=== PATIENT | female | born 1960 | race Caucasian/White ===

== ENCOUNTER → 2016-09-02 | Day surgery (SDC) | payer BC ==
[~2016-09-02] VITALS: Ht 172.7 cm; Wt 104.3 kg
[~2016-09-02] MED LIST: ABILIFY5 MG PO; AMBIEN 10MG TAB10 MG PO; B12 INJ.,1000 MCG/M IM; BACTRIM DS 8001 TA1 PO; BENTYL20 MG PO; BUMEX 1MG TAB1 MG PO; CIPRO 500MG TA500 MG PO; COREG25 MG PO; CYCLOBENZAPRINE10 MG PO; CYMBALTA20 MG PO; CYMBALTA60 MG PO; DILAUDID2 MG EP; FLEXERIL10 MG PO; FLOMAX 0.4MG C0.4 MG PO; HYDROMORPH IV; LAMICTAL 100 M100 MG PO; LEVSIN 0.1250.125 MG SL; LORAZEPAM0.5 MG/TAB PO; LORTAB 5/500 501 TAB PO; LORTAB 500 MG-11 TAB PO; LOVENOX40 MG/0.4 SC; MAXZIDE 25 MG-31 TA1 PO; NAPROXEN SODIU500 MG PO; PERCOCET 10 MG1 EACH PO; PERCOCET 325 MG1 TA3 PO; PERCOCET 5/3251 EACH PO; PERCOCET1 TA1 PO; PHENERGAN 25MG.25 M1 PO; PREDNISONE 20MG20 MG PO; PREMARIN 0.60.625 MG PO; PROTONIX 40MG T40 MG PO; SENNA DOCUSATE1 TAB PO; ZITHROMAX Z PA250 MG PO
[2016-09-02 13:02] VITALS: BP 127/95
[2016-09-02 13:29] VITALS: BP 127/95
[2016-09-02 13:30] VITALS: BP 158/103
--- NOTE | 2016-09-02 13:35 | Procedure Note ---
Procedure detail Date of procedure: 09/02/16 Anesthesiologist: Jame gomez CRNA Complications: None Pre-procedure diagnosis: Degenerative disc disease lumbar spine multiple levels lumbar radiculopathy symptoms. Post laminectomy syndrome. Post-procedure diagnosis: Same. Indications for procedure: Patient's a very pleasant 56-year-old white female were treating her pain clinic for chronic low back pain secondary to degenerative disc disease lumbar spine multiple levels with MR radiculopathy symptoms. Post laminectomy syndrome lumbar spine. We are currently managing her with intrathecal pain pump. She is doing quite well with Dilaudid 1 mg/mL at a rate of 0.15 mg per day. She's having some increased pain in her low back as well as bilateral hips. We will increase her rate to 0.20 mg per day. Also, we will increase her PTM dose to 0.03 mg she'll continue with 3 PTM doses available. Patient's awake alert oriented 3. In no acute distress. Flexion extension lumbar spine somewhat guarded secondary to pain. Deep tendon reflexes upper lower extreme is normal. Motor strength upper lower extreme is normal. There is no gross sensory deficit. Gait is normal. Procedure detail: Details of the procedure expected to the patient. Patient was taken to the procedure room where noninvasive monitors were placed including noninvasive blood pressure cuff as well as pulse oximeter. The area over the intrathecal pain pump was cleansed using chlorhexidine as a cleansing solution. Using a 22- gauge needle from the refill kit the pump was accessed with ease. 7.9 mL of solution was withdrawn and discarded appropriately. 20 mL of Dilaudid 1 mg/mL was injected. The pump was interrogated and the rate was increased to 0.2 mg per day. The PTM dose was increased to 0.03 mg. Plan and disposition: Patient was reevaluated 15 minutes post procedure. She did quite well. We'll discharge her home. She'll is welcome to call us with any questions. at 0928
[2016-09-02 13:54] VITALS: BP 128/73
--- NOTE | 2016-09-02 14:41 | RADIOLOGY REPORT PS360 ---
HIP RT 2-3V W/PELVIS IF PERFOR HISTORY: RT HIP PAIN ORDERING PHYSICIAN: LAUREL GOMEZ CRNA PATIENT AGE: 56 years COMPARISON: None FINDINGS: Right hip is unremarkable.. No fracture or dislocation or significant degenerative changes evident. There are mild dysplastic changes of the left femoral head seen on the AP view of the pelvis and there are postsurgical changes of lumbar spine with very metallic pack overlying the right ilium superiorly. IMPRESSION: 1. Negative right hip. 2. Mild dysplastic changes of the left femoral head
== END ==
LOC: PM 12:52
DX: M51.16 Intervertebral disc disorders with radiculopathy, lumbar region (principal); M96.1 Postlaminectomy syndrome, not elsewhere classified

== ENCOUNTER 2016-09-08 18:14 | Emergency (ER) | payer BC ==
[~2016-09-08] VITALS: Ht 172.7 cm; Wt 63.5 kg
[~2016-09-08 18:14] MED LIST changes: -FLEXERIL10 MG PO; -PREDNISONE 20MG20 MG PO; -ZITHROMAX Z PA250 MG PO
--- NOTE | 2016-09-08 19:26 | Urgent Treatment Center Report ---
History of Present Issue Date/Time Seen by Provider 09/08/16 1840 Visit Reason Pt arrived:Walked Presenting Problem:PT C/O DURANT, SORE THROAT, COUGH, AND CHEST CONGESTION Location if Accident: Onset of symptoms date/time:/ or onset unknown for:MEDICAL HX UNKNOWN Have you (or family members/close friends) recently traveled outside the [place]? N If Yes, where/when: Have you had exposure to infectious disease within the past month? TB? Other? Specify: Patient states that he grandchildren have had the strep throat and now she is having headache, sorethroat and cough and congestion states that she thought she should come get checked because of her exposure to them ALLERGIES Coded Allergies: cephalexin (From Little1) (Severe, "SERUM SICKNESS"; JOINTS LOCKED 01/28/16) Penicillins (Intermediate, I-HIVES 01/28/16) morphine (Intermediate, I-HIVES 01/28/16) Home Medications Active Scripts Lamotrigine (Lamictal 100Mg) 200 MG PO BID #30 Prov: 01/30/12 Reported Medications Vitamin B12 (Cyanocobalamin Injection) 1,000 MCG IM Q 2 WEEKS Lorazepam (Lorazepam 0.5MG) 0.5 MG PO Q6HP #60 TAB DULOXETINE HCL (Cymbalta 60MG) 60 MG PO DAILY Promethazine Hydrochloride (Phenergan 25MG Tab) 12.5 MG PO Q4-6H PRN Carvedilol (Coreg 25MG) 12.5 MG PO BID TRIAMTERENE/HYDROCHLOROTHIAZID (Maxzide 37.5 MG-25 MG Tablet) 1 TAB PO DAILY Bumetanide (Bumex 1MG Tab) 0.5 MG PO DAILY Hydromorphone HCl in 0.9% NaCl (Hydromorphone 100 MG/50 Ml-Ns) 100 MG IV CONTINUOUS Dicyclomine Hcl (Bentyl 20MG) 20 MG PO Q6HP PRN STOMACH Hyoscyamine Sulfate (Levsin 0.125MG Tab) 0.125 MG SL QIDP PRN STOMACH Aripiprazole (Abilify) 5 MG PO QHS History Medical History General CAD? No Angina: No [place]: No Hypertension? No Hyperlipidemia? No CHF? No DVT? No PE? No COPD? No Asthma? No Anemia? Yes GERD? Yes Gastric ulcers? No GI Bleed? No Hernia? No Thyroid Problems? No Hypothyroidism? No CVA? No Seizures? No Diabetes? Yes Insulin Dependent: No Insulin Pump: No Home FSBS? No Renal Insuffiency? No UTI? No Stones? No BPH? No GB Disease: Yes Nephritic Syndrome? No Asplenia? No Hepatitis? No Sickle Cell Disease? No Arthritis? Yes Migraines? Yes Cataracts? No Glaucoma? No MRSA? No HIV? No TB? No Anxiety? Yes Depression? Yes Cancer? Yes Site: SKIN CA More? Yes Additional hx: HEART MURMUR Immunization HX DT/Tetanus 03/12/12 Flu [id number] Pneumonia Received In Past Surgical Hx Previous Surgery?Y EAR IN 1966 & 1984 & 1991 Cholecystectomy Hysterect KNEE RIGHT ARTHROSCOPIES L5 DISCECTOMY GASTRIC BYPASS ADHESIONS DERMOID CYST COLONOSCOPY BASAL CELL CA NOSE HAMMER TOES R KNEE REPLACEMENT INTRATHECAL PAIN PUMP Family History Family HX Diabetes Yes CAD Yes Hypertension Yes Hyperlipidemia Yes Cancer Yes TB No Social History Smoking Hx Smoker: Never Smoker Tobacco: No Packs/day N/A Alcohol Alcohol: No Review of Systems All Other Systems Reviewed and Negative ENT nose congestion, throat pain, throat swelling. Respiratory cough Physical Exam Vital Signs Vital Signs Date Time Temp Pulse Resp B/P Pulse O2 O2 Flow FiO2 Ox Delivery Rate 09/08 1852 101.3 84 18 119/63 99 General Appearance Patient appears ill, pale in color cheeks red Ear, Nose, Throat sinus pain/drainage, nasal congestion, tonsillar exudate, tonsillar swelling, throat red, swollen, greenish yellow discharge from nose Respiratory Status Yes: trachea midline, chest symmetrical, non tender chest. No: respiratory distress. Lung Sounds bilateral: normal breath sounds, lungs clear. Cardiovascular normal exam, regular rate/rhythm, no peripheral edema, no gallop Neurologic alert, normal exam, no motor/sensory deficits Medical Decision Making LABS/Meds/Orders Pt receiving controlled substance in ED? No Results/Orders Current Medication Orders Sig/Sophia Start time Last Medication Dose Route Stop Time Status Admin Acetaminophen 0 .STK-MED ONE 09/08 1908 DC PO Ibuprofen 0 .STK-MED ONE 09/08 1908 DC PO Acetaminophen 1,000 MG ONCE ONE 09/08 1899 DC 09/08 PO 09/08 Ibuprofen 800 MG ONCE ONE 09/08 1899 DC 09/08 PO 09/08 Orders Procedure Date/time Status [facility] STREP SCREEN 09/08 1916 Active [facility] FLU A,B 09/08 1916 Active Departure Departure Time of Disposition 1940 Disposition DC Home or Self Care(routine) Clinical Impression Primary Impression: Upper respiratory infection Condition STABLE Referrals [facility] (Family) Patient Instructions DI for Cough -- Adult, DI for Sinusitis Additional Instructions Drink plenty of fluids Over the counter Motrin/Tylenol as needed for fever Follow up with family doctor Discharge Counseling Counseled pt/family regarding diagnosis, medications/RX, home care Prescriptions Current Visit Scripts Azithromycin (Zithromycin (Z-PREETI) 250MG Tab) 250 MG PO DAILY #6 TAB TAKE TWO (2) TABLETS ON DAY 1, THEN ONE (1) TABLET DAY #2 THRU #5 Prednisone (Prednisone 20MG) 20 MG PO BID #10 TAB at 1945
[2016-09-08] MEDS ORDERED: PREDNISONE 20MG20 MG PO (19:45)
[2016-09-08] MEDS ORDERED: ZITHROMAX Z PA250 MG PO (19:45)
[2016-09-08 19:46] LABS: UTC STREP SCREEN NOT DETECTED (NOTDETECTED)
[2016-09-08 19:54] VITALS: BP 119/63
== END 2016-09-08 19:55 | disposition home or self-care (01) ==
LOC: UTC 18:14
PROVIDERS: Nurse Practitioner
DX: J06.9 Acute upper respiratory infection, unspecified (principal); F41.8 Other specified anxiety disorders; E11.9 Type 2 diabetes mellitus without complications; K21.9 Gastro-esophageal reflux disease without esophagitis

== ENCOUNTER 2016-10-30 14:20 | Emergency (ER) | payer BC ==
[~2016-10-30] VITALS: Ht 172.7 cm; Wt 104.3 kg
[~2016-10-30 14:20] MED LIST changes: +PREDNISONE 20MG20 MG PO; +ZITHROMAX Z PA250 MG PO
--- NOTE | 2016-10-30 14:56 | Emergency Room Report ---
History of Present Illness Time Seen by MD Cheek Presenting Problem in Triage Pt arrived:Walked Presenting Problem:SEVER BACK PAIN, CANNOT URINATE. STATES SHE HAS NOT BEEN ABLE TO URINATE SINCE 0500. PT HAS A PAIN PUMP DUE TO CHRONIC PAIN BUT STATES THIS PAIN IS NOT HER TYPICAL PAIN. Onset of symptoms date/time:10/27/1605/05/800 or onset unknown for: Treatment Prior to Arrival: [employer] Provided by: Sepsis Risk Assessment: Temp: 98.7 B/P: 120/56 MAP: 77 Pulse: 66 Resp: 16 Recent fever? N Clinical Suspician of Infection? N Mental Status: 1 - Regular (Normal Baseline) Sepsis Risk:Low Sepsis Risk Have you (or family members/close friends) recently traveled outside the [place]? N If Yes, where/when: Have you had exposure to infectious disease within the past month? TB? Other? Specify: TC from pain clinic: patient with chronic urinary retention; chronic pain. Patient states she "dropped the baby" last week and has been having localized pain around her pain pump since that time. She is moving her bowels well, reporting some urinary retention today. No loss of bowel or bladder function acutely; no acute numbness or weakness; has chronic lumbar pain with surgery and chronic pain syndrome. ALLERGIES Coded Allergies: cephalexin (From Keflex) (Severe, "SERUM SICKNESS"; JOINTS LOCKED 10/30/16) Penicillins (Intermediate, I-HIVES 10/30/16) morphine (Intermediate, I-HIVES 10/30/16) Home Medications Active Scripts Lamotrigine (Lamictal 100Mg) 200 MG PO BID #30 Prov: 01/30/12 Reported Medications Vitamin B12 (Cyanocobalamin Injection) 1,000 MCG IM Q 2 WEEKS Lorazepam (Lorazepam 0.5MG) 0.5 MG PO Q6HP #60 TAB DULOXETINE HCL (Cymbalta 60MG) 60 MG PO DAILY Promethazine Hydrochloride (Phenergan 25MG Tab) 12.5 MG PO Q4-6H PRN Carvedilol (Coreg 25MG) 12.5 MG PO BID TRIAMTERENE/HYDROCHLOROTHIAZID (Maxzide 37.5 MG-25 MG Tablet) 1 TAB PO DAILY Bumetanide (Bumex 1MG Tab) 0.5 MG PO DAILY Hydromorphone HCl in 0.9% NaCl (Hydromorphone 100 MG/50 Ml-Ns) 100 MG IV CONTINUOUS Dicyclomine Hcl (Bentyl 20MG) 20 MG PO Q6HP PRN STOMACH Hyoscyamine Sulfate (Levsin 0.125MG Tab) 0.125 MG SL QIDP PRN STOMACH Aripiprazole (Abilify) 5 MG PO QHS History Medical History General CAD? No Angina: No [place]: No Hypertension? No Hyperlipidemia? No CHF? No DVT? No PE? No COPD? No Asthma? No Anemia? Yes GERD? Yes Gastric ulcers? No GI Bleed? No Hernia? No Thyroid Problems? No Hypothyroidism? No CVA? No Seizures? No Diabetes? Yes Insulin Dependent: No Insulin Pump: No Home FSBS? No Renal Insuffiency? No End Stage Renal Disease? No UTI? No Stones? No BPH? No GB Disease: Yes Nephritic Syndrome? No Asplenia? No Hepatitis? No Sickle Cell Disease? No Arthritis? Yes Migraines? Yes Cataracts? No Glaucoma? No MRSA? No HIV? No TB? No Anxiety? Yes Depression? Yes Cancer? Yes Site: SKIN CA More? Yes Additional hx: HEART MURMUR Immunization Hx DT/Tetanus 03/12/12 Flu [id number] Pneumonia Received In Past Surgical Hx Previous Surgery?Y EAR IN 1966 & 1984 & 1991 Cholecystectomy Hysterect KNEE RIGHT ARTHROSCOPIES L5 DISCECTOMY GASTRIC BYPASS ADHESIONS DERMOID CYST COLONOSCOPY BASAL CELL CA NOSE HAMMER TOES R KNEE REPLACEMENT INTRATHECAL PAIN PUMP ENTRY LEVEL ACCOUNTING CLERK Hx LMP N/A Family History Family Hx Diabetes Yes CAD Yes Hypertension Yes Hyperlipidemia Yes Cancer Yes TB No Social History Smoking Hx Smoker: Never Smoker Tobacco: No Packs/day N/A Alcohol Alcohol: No Review of Systems All Other Systems Reviewed and Negative Musculoskeletal see HPI, back pain Psychiatric/Neurological pre-existing deficit (chronic urinary retention), other (chronic back pain) Physical Exam Vital Signs Vital Signs Date Time Temp Pulse Resp B/P Pulse O2 O2 Flow FiO2 Ox Delivery Rate 10/30 1701 98.7 67 16 126/62 100 10/30 1539 16 10/30 1519 67 16 117/62 100 10/30 1434 98.7 66 16 120/56 100 General Appearance normal appearance, WD/WN, no apparent distress Eye Exam - bilateral eye normal exam, bilateral eye PERRL, bilateral eye EOMI Neck normal inspection, non-tender, supple, full range of motion Respiratory Status Yes: trachea midline, chest symmetrical, non tender chest. No: respiratory distress, tender on palpation, use of accessory muscles, pain on inspiration, pain on expiration, productive cough, non productive cough. Lung Sounds bilateral: normal breath sounds, lungs clear. Cardiovascular normal exam, regular rate/rhythm, no gallop, no JVD, no murmur, no rub, normal peripheral pulses (mild ankle edema, chronic) Peripheral Pulses Pulses normal Yes (DP B) Gastrointestinal normal bowel sounds, normal exam, soft, no organomegaly, no pulsatile mass, no guarding, no rebound Back no vertebral tenderness, strt leg raising(L)-NML, strt leg raising(R)-NML, Palpable pain pump to right lower lumbar area with tenderness to that region without bogginess or edema; midline scar c/w remote lumbar surgical repair; no vesicles or rash; atraumatic. Extremities non-tender, normal range of motion, no calf tenderness, pedal edema Neurologic alert, normal exam, no motor/sensory deficits, oriented x 3 Glascow Coma Scale Glascow Coma Scale Response Value EYE response: 4 Spontaneously 4 MOTOR response: 6 OBEYS 6 VERBAL response: 5 Oriented & Converses 5 Total 15 Reflexes Reflexes normal Yes DTR 2+ ankle (R), 2+ ankle (L) Skin intact, normal color Medical Decision Making LABS/Meds/Orders Pt receiving controlled substance in ED? No Results/Orders Laboratory Tests 10/30/16 1630: Urine Color YELLOW, Urine Appearance SL CLOUDY, Urine pH 6.0, Ur Specific Thorn[place]ike 1.015, Urine Protein NEGATIVE, Urine Ketones NEGATIVE, Urine Blood NEGATIVE, Urine Nitrate NEGATIVE, Urine Bilirubin NEGATIVE, Urine Urobilinogen 0.2, Ur Leukocyte Esterase TRACE H, Urine WBC 3-5, Ur Squamous Epith Cells OCC, Urine Bacteria 2+, Hyaline Casts OCC, Urine Glucose NEGATIVE 10/30/16 1530: Sodium 140, Potassium 3.3 L, Chloride 101, Carbon Dioxide 33 H, BUN 17, Creatinine 0.9, Estimated Creat Clear 115, Estimated GFR (MDRD) 65, Glucose 82, Calcium 8.9, Total Bilirubin 0.3, AST 32, ALT 36, Alkaline Phosphatase 103, Total Protein 7.0, Albumin 3.2 L, Globulin 3.8 H, Albumin/Globulin Ratio 0.8 L, WBC 5.9, RBC 3.64 L, Hgb 11.2 L, Hct 33.6 L, MCV 92.5, RDW 12.4, Plt Count 338, MPV 5.7 L, Gran % 60.0, Gran # 3.6, Lymphocytes % 29.8, Monocytes % 6.2, Eosinophils % 3.7, Basophils % 0.3, Lymphocytes # 1.8, Monocytes # 0.4, Eosinophils # 0.2, Basophils # 0.0, PUBS MCHC 33.4, MCH 30.9 Current Medication Orders Sig/Sophia Start time Last Medication Dose Route Stop Time Status Admin Ketorolac 30 MG ONCE ONE 10/30 1545 DC 10/30 Tromethamine IM 10/30 1546 1539 Ondansetron HCl 4 MG ONCE ONE 10/30 1545 DC 10/30 SL 10/30 1546 1539 Ondansetron HCl 0 .STK-MED ONE 10/30 1522 DC .ROUTE Ondansetron HCl 0 .STK-MED ONE 10/30 1501 DC .ROUTE Ketorolac 15 MG ONCE ONE 10/30 1500 CAN Tromethamine IV 10/30 1501 Ketorolac 0 .STK-MED ONE 10/30 1500 DC Tromethamine .ROUTE Ondansetron HCl 4 MG ONCE ONE 10/30 1500 CAN IV 10/30 1501 Sodium Chloride 10 ML PRN PRN 10/30 1500 DC IV 10/31 1450 Orders Procedure Date/time Status DIET-NOTHING BY MOUTH 10/30 D Active CULTURE, URINE 10/[address] ABD/PELVIS REQ 10/30 1555 Complete URINARY CATHETER INSERT 10/30 1554 Active URINALYSIS/COMPLETE 10/30 1451 Complete CBC WITH AUTO DIFF 10/30 1451 Complete CHEM 12 PROFILE 10/30 1451 Complete XRAY/CT/US XRAY/CT/US CT interpretation by reviewed by me (report reviewed) Time results known: 1724 CT Results normal/NAD (increased stool neg acute), chronic back surgical changes and DJD Consult MD Physician Consult Time Called 1723 Reason Pt. Condition Comments Allison Hines w/ pain clinic recommends Flexeril, d/c, she will call the patient tomorrow at home and set up urology f/u and pain clinic f/u. Departure Departure Time of Disposition 172 Disposition DC Home or Self Care(routine) Clinical Impression Primary Impression: Lumbar pain determined by palpation Condition STABLE Patient Instructions Managing Chronic Low Back Pain Additional Instructions Allison from pain clinic will set up urology follow up and pain clinic f/u; recommends muscle relaxer and d/c home. The muscle relaxer can make you sleepy, and you drove here, so fill the prescription and don't drive after taking this medication. Discharge Counseling Counseled pt/family regarding diagnosis, test results, medications/RX, home care, follow up needs Prescriptions Current Visit Scripts Cyclobenzaprine Hcl (Flexeril) 5 MG PO BID PRN spasm #6 TAB ED Critical Care Critical Care No at 1720
[2016-10-30 15:57] LABS: HEMOGLOBIN 11.2 g/dL (12.2-16.2); LYMPH # 1.8 K/mm3 (0.7-4.5); LYMPH % 29.8 % (10-50.0)
[2016-10-30 16:37] LABS: URINE BILIRUBIN - DIPSTICK NEGATIVE (NEG); URINE BLOOD NEGATIVE (NEG)
[2016-10-30 16:45] LABS: URINE SQUAMOUS CELLS OCC #/hpf (0-5)
--- NOTE | 2016-10-30 16:58 | RADIOLOGY REPORT PS360 ---
CT ABD PELVIS W/O CONTRAST CLINICAL INDICATION: URINARY RETENTION ORDERING PHYSICIAN: Alessia Xie MD PATIENT AGE: 56 years COMPARISON: None TECHNIQUE: Axial images obtained with sagittal and coronal reformats. PROCEDURE: Oral Contrast: None IV Contrast: None . FINDINGS: There are minimal dependent changes within the lingula. There is been prior gastric surgery with prior gastric bypass. Postcholecystectomy change. No focal liver lesion. Spleen and adrenal glands are unremarkable. No renal calculi or hydronephrosis. There is mild amount retained colonic feces. No evidence of intestinal obstruction or free air. No evidence of diverticulitis or appendicitis. A Heart catheter is present. The urinary bladder is decompressed. Artifact is present from intrathecal stimulator device with implantable portion of the device device in the right paraspinal area. There has been prior lumbar surgery with interpedicular screws at L3, L4, and L5. There is severe degenerative disc disease at L2-L3. IMPRESSION: 1. No acute intra-abdominal or pelvic pathology. 2. Postsurgical changes as described above. 3. Moderate amount retained colonic feces. 4. Heart catheter present. No evidence of renal or ureteral calculi
[2016-10-30] MEDS ORDERED: FLEXERIL10 MG PO (17:28)
[2016-10-30 17:57] VITALS: BP 126/62
== END 2016-10-30 17:58 | disposition home or self-care (01) ==
LOC: ER 14:20
PROVIDERS: Emergency Medicine
DX: M54.5 Low back pain (principal); K21.9 Gastro-esophageal reflux disease without esophagitis; E11.9 Type 2 diabetes mellitus without complications; F41.8 Other specified anxiety disorders

== ENCOUNTER → 2017-01-30 | Outpatient (CLI) | payer BC ==
[~2017-01-30] MED LIST changes: +DILAUDID4 MG PO; +FLEXERIL10 MG PO; +LASIX 20MG. TAB20 MG PO; +MUPIROCIN2% TP; +TRAMADOL 50MG T50 M1 PO
[2017-01-30 10:39] LABS: LYMPH # 1.3 K/mm3 (0.7-4.5); LYMPH % 25.5 % (10-50.0)
[2017-01-30 11:28] LABS: BUN 11 mg/dL (7-18); GFR (ESTIMATED) 103 ML/MIN (59-)
[2017-01-30 11:59] LABS: HEMOGLOBIN 10.7 g/dL (12.2-16.2)
[2017-01-31 19:28] LABS: Vitamin D, 25-Hydroxy 24.7 ng/mL (30.0-100.0)
== END ==
LOC: LAB 10:11
PROVIDERS: Internal Medicine
DX: E11.9 Type 2 diabetes mellitus without complications (principal); I10 Essential (primary) hypertension; R79.89 Other specified abnormal findings of blood chemistry; M19.90 Unspecified osteoarthritis, unspecified site

== ENCOUNTER 2017-03-31 12:51 | Day surgery (SDC) | payer BC ==
[~2017-03-31] VITALS: Ht 172.7 cm; Wt 104.3 kg
[2017-03-31 13:32] VITALS: BP 124/70
[2017-03-31 14:04] VITALS: BP 124/70
[2017-03-31 14:05] VITALS: BP 142/94
--- NOTE | 2017-03-31 14:17 | Procedure Note ---
Procedure detail Date of procedure: 03/31/17 Anesthesiologist: Jame Lujan Complications: None Pre-procedure diagnosis: Degenerative disease lumbar spine multiple levels. Lumbar radiculopathy symptoms. Lumbar postlaminectomy syndrome. Post-procedure diagnosis: Same. Indications for procedure: Very pleasant 57-year-old white female returns our procedure clinic today for intrathecal pain pump refill. Patient seems to be doing quite well with her current settings. However, patient is describing some excess pain in the lumbar spine area that she describes as constant, dull, aching. We discussed in detail with the patient regarding adding bupivacaine at her next refill. She agrees. Patient's current pump rate is 0.75 mg per day. She also has PTM at 0.07 mg 3 times a day. We are changing her concentration today from hydromorphone 1 mg/ml to 5 mg/mL. Procedure detail: Details of the procedure were expected to the patient. The patient was taken to procedure room and placed in the sitting position. The area over the pump was cleansed using chlorhexidine as a cleansing solution. The pump was accessed with ease using a 22-gauge needle from the refill kit. 5 mL of solution was withdrawn and discarded appropriately. The pump was then filled with 20 mL of hydromorphone 5 mg/mL. The pump was interrogated. The rate was continued at 0.75 mg per day. Plan and disposition: Patient was reevaluated 15 minutes post procedure. She is very well. She will return to see us at her next refill date. Also, we will attempt to add bupivacaine to her mixture her medications at her next refill date. at [id number]
[2017-03-31 14:44] VITALS: BP 135/70
== END 2017-03-31 14:46 ==
LOC: PM 12:51
DX: M51.16 Intervertebral disc disorders with radiculopathy, lumbar region (principal); M96.1 Postlaminectomy syndrome, not elsewhere classified

== ENCOUNTER 2017-04-21 12:52 | Day surgery (SDC) | payer BC ==
[~2017-04-21] VITALS: Ht 172.7 cm; Wt 99.8 kg
[2017-04-21 13:13] VITALS: BP 121/67
[2017-04-21 13:29] VITALS: BP 142/96
[2017-04-21 13:30] VITALS: BP 149/97
--- NOTE | 2017-04-21 13:43 | Procedure Note ---
Procedure detail Date of procedure: 04/21/17 Anesthesiologist: Jame Lujan Complications: None Pre-procedure diagnosis: Degenerative disc disease lumbar spine multiple levels. Lumbar postlaminar syndrome. Lumbar radiculopathy symptoms. Post-procedure diagnosis: Same. Indications for procedure: Very pleasant 77-year-old white female that we've been treating for quite some time for chronic low back pain secondary to degenerative disc disease lumbar spine with lumbar postlaminectomy syndrome. We currently manage her with intrathecal pain pump. Currently she has Dilaudid 10 mg/mL at 0.75 mg per day. She presents to our clinic today for intrathecal pain pump refill. We will add bupivacaine 5 mg/mL along with Dilaudid 10 mg/mL. We will not make any changes to the current daily rate. However, we will increase her PTM to 0.075 mg 3 times daily. Procedure detail: Details of the procedure is going to the patient. The patient taken to procedure room and placed in sitting position. The area over the pump was cleansed using chlorhexidine as a cleansing solution. The pump was accessed with ease using a 22-gauge needle from the refill kit. 18 mL of solution was withdrawn and discarded appropriately. The pump was then filled with 20 mL of Dilaudid 10 mg/ mL and bupivacaine 5 mg/mL. The pump was interrogated and the rate was continued at 0.75 mg per day. The PTM was changed to 0.075 mg 3 times daily. Patient tolerated the procedure without difficulty. There are no complications. Objective: Patient's awake alert oriented 3. In acute distress. Flexion extension lumbar spine somewhat guarded secondary to pain. Deep tendon reflexes upper lower extremities normal. Motor strength upper and lower extremities normal. There is no gross sensory deficit. Gait is normal. Positive straight leg raise test at 30 degrees bilaterally. Plan and disposition: Patient was evaluated 10 minutes post procedure. She do very well. We'll see her at her next refill date. at 1075
[2017-04-21 13:47] VITALS: BP 120/74
== END 2017-04-21 13:47 | disposition home or self-care (01) ==
LOC: PM 12:52
DX: M51.16 Intervertebral disc disorders with radiculopathy, lumbar region (principal); M96.1 Postlaminectomy syndrome, not elsewhere classified

== ENCOUNTER 2017-05-11 13:26 | Day surgery (SDC) | payer BC ==
--- NOTE | 2017-05-11 15:35 | Operative Note ---
Upper GI Endoscopy Procedure date: 05/11/17 Date of : 60 Procedure:Upper GI Endoscopy Esophagogastrojejunoscopy with cold biopsies and TTS balloon dilation Indications: Mrs. Dunne is a 57-year-old female who underwent prior Morris-en-Y gastric bypass (Dr. Ilia Marrufo). She has had numerous bowel surgeries. She has chronic dyspepsia. She did have a CAT scan that showed some dilated loops of small bowel and possible ileus. She is on a Dilaudid pain pump and typically has diarrhea up to 3 or 4 times a day but has had intermittent constipation. She has chronic IBS. She also has had some dysphagia. The patient did have panendoscopy by Dr. goode and in 2015 that was normal but poorly prepped. She had an EGD with Dr. Vinicius Allen M.D. in 2012. Her dyspepsia is refractory to proton pump inhibitor therapy and H2 antagonists. Performing Provider: Ramona Galaviz MD Referring Provider: Jose Hightower M.D. Sedation: MAC sedation Procedure: Prior to the procedure, a history and physical exam was performed, and patients medications and allergies were reviewed. The risks and benefits of the procedure and the sedation options and risks were discussed with the patient. All questions were answered and informed consent was obtained. The patient was brought to the procedure room. Patient identification and proposed procedure were verified by the physician and the nurse. The patient was placed in a left lateral decubitus position and the scope was passed under direct vision. Throughout the procedure, the patient's blood pressure, pulse, and oxygen saturations were monitored continuously. The endoscope was introduced through the mouth, and advanced to the second part of duodenum. The upper GI endoscopy was accomplished without difficulty. The patient tolerated the procedure well. Findings: The scope was passed directly into the upper esophagus and advanced to the jejunal afferent and efferent limbs of jejunum from the Morris-en-Y gastric bypass which were normal. The stoma was widely patent with no anastomotic ulceration. The scope was withdrawn into a very small gastric pouch that was normal. Cold biopsies were obtained. There was no hiatal hernia. There was no significant gastritis. The scope was withdrawn into the esophagus. There was no evidence of reflux esophagitis, Garcia's or stricturing or esophageal ring. The entire esophagus was dilated to 60 Palestinian/20 mm with a TTS hydrostatic balloon with some resistance at the cricopharyngeus/upper esophageal sphincter. Immediate complications: None EBL (ml): 0 Impression: 1. Normal Morris-en-Y gastric bypass anatomy 2. Esophageal dyskinesia/esophageal dysmotility with some mild cricopharyngeal spasm status post dilatation to 20 mm Recommendations: I do feel that the patient has chronic functional dyspepsia and functional bowel disease. She may benefit from the addition of Relistor or Movantik. I would also consider therapy for visceral sensitivity/spasm. at 1869
[2017-05-11 16:08] VITALS: BP 113/73
== END 2017-05-11 16:04 | disposition home or self-care (01) ==
LOC: SDC 13:26
PROVIDERS: Internal Medicine Gastroenterology
PROC: 0DB68ZX Excision of Stomach, Via Natural or Artificial Opening Endoscopic, Diagnostic (ICD-10-PCS; 2017-05-11)
PROC: 0D758ZZ Dilation of Esophagus, Via Natural or Artificial Opening Endoscopic (ICD-10-PCS; principal; 2017-05-11 14:30)
DX: K30 Functional dyspepsia (principal); K58.0 Irritable bowel syndrome with diarrhea; R13.10 Dysphagia, unspecified; K29.50 Unspecified chronic gastritis without bleeding; Z98.84 Bariatric surgery status; K22.4 Dyskinesia of esophagus; J38.5 Laryngeal spasm; Z79.899 Other long term (current) drug therapy; Z88.3 Allergy status to other anti-infective agents; Z88.5 Allergy status to narcotic agent; Z88.0 Allergy status to penicillin; Z88.8 Allergy status to other drugs, medicaments and biological substances
CPT/HCPCS: C1726

== ENCOUNTER 2017-06-23 13:38 | Day surgery (SDC) | payer BC ==
[~2017-06-23] VITALS: Ht 172.7 cm; Wt 127.0 kg
[~2017-06-23 13:38] MED LIST changes: +ABILIFY5 MG; +ADULT LOW DOSE81 MG; +ARTHROTEC; +CARVEDILOL12.5 MG; +LAMICTAL200 MG; +MONTELUKAST SOD10 MG; +NATURE'S BLEND400 I1; +OMEPRAZOLE40 MG; +RANITIDINE HCL300 M2; +SLOW RELEASE I142 MG; +THERAPEUTIC-M1 EAC1; +TRILEPTAL300 M1; +VITAMIN C PURE500 M1
[2017-06-23 13:58] VITALS: BP 111/58
[2017-06-23 14:27] VITALS: BP 111/58
[2017-06-23 14:28] VITALS: BP 117/65
[2017-06-23 14:44] VITALS: BP 114/63
--- NOTE | 2017-06-23 14:48 | Procedure Note ---
Procedure detail Date of procedure: 06/23/17 Anesthesiologist: Jame Lujan Complications: None Pre-procedure diagnosis: Degenerative disc disease lumbar spine multiple levels. Lumbar postlaminectomy syndrome. Lumbar facet arthropathy. RIGHT sacroiliitis. Post-procedure diagnosis: Same. Indications for procedure: Very pleasant 57-year-old white female were treating with intrathecal pain pump for chronic pain management secondary to degenerative disc disease lumbar spine. Lumbar postlaminectomy syndrome. Lumbar spondylosis. Multilevel lumbar facet arthropathy. RIGHT sacroiliitis. Patient is currently being managed with intrathecal hydromorphone 5 mg/mL and bupivacaine 5 mg/mL. The pump rate is currently 0.75 mg per day. Patient also receiving 8 PA boluses of 0.075 mg. Patient complaining of low back pain in the midline. Also, patient complaining of RIGHT SI joint pain. Upon examination she has extreme point tenderness over the lumbar back in the midline as well as RIGHT SI joint. She presents today for medial branch block L3-4, L4-5, L5-S1 bilaterally. And RIGHT SI joint injection. Procedure detail: Procedure: Right sacroliliac joint injection under fluoroscopy Informed consent was obtained and the risk and benefits of the procedure were explained to the patient.~ The patient was taken to the procedure room and noninvasive monitors were placed including noninvasive blood pressure cuff and pulse oximeter.~ The patient was placed prone on the procedure table.~ The~ right hip was cleansed using Betadine as a cleansing solution.~ C-arm fluorosocpy was used to view the right SI joint.~ The skin and subcutaneous tissues were anesthetized using Lidocaine 1.5% and a 25-gauge needle.~ After this, a 22-gauge spinal needle was inserted under fluoroscopic guidance into the inferior aspect of the right SI joint.~ Omnipaque dye was injected and a good spread was seen throughout the joint.~ After this, approximately 5 mL of bupivacaine 0.25% and Depo-Medrol 40 mg was incrementally injected into the sacroiliac joint.~ The patient tolerated the procedure well with no complications.~ The patient was observed in the Pain Clinic, then discharged home neurologically intact.~ Informed consent was obtained and the risk and benefits of the procedure was explained to the patient. Patient was taken to the procedure room where noninvasive monitors were placed, including noninvasive blood pressure cuff as well as pulse oximeter. The area over the lumbar spine was cleansed using chlorhexidine as a cleansing solution. I anesthetized the skin and subcutaneous tissues with 1% Lidocaine. I placed 22-gauge spinal needles into the facet joint / medial branches of [L3-L4, L4-L5, and L5-S1] bilaterally. Needle placement was confirmed with fluoroscopy. After confirmation of needle placement, each site was injected with 1 mL of 1% lidocaine and 0.25 % Marcaine and 10 mg of Depo- Medrol. A total of 80 mg of depo medrol was used for bilateral medial branch blocks of [L3-L4, L4-L5, and L5-S1] bilaterally. Patient tolerated the procedure without difficulty. There were no complications. Plan and disposition: Patient tolerated the procedure without difficulty. She was reevaluated 10 minutes post procedure. She reporting 100 percent improvement terms for lumbar back pain as well as RIGHT hip pain. She'll return to see us in the pain clinic for further evaluation. at [id number]
== END 2017-06-23 14:45 | disposition home or self-care (01) ==
LOC: PM 13:38
PROC: 3E0U33Z Introduction of Anti-inflammatory into Joints, Percutaneous Approach (ICD-10-PCS; principal; 2017-06-23)
PROC: 3E0U3BZ Introduction of Anesthetic Agent into Joints, Percutaneous Approach (ICD-10-PCS; 2017-06-23)
PROC: 3E0T3BZ Introduction of Anesthetic Agent into Peripheral Nerves and Plexi, Percutaneous Approach (ICD-10-PCS; 2017-06-23)
PROC: 3E0T33Z Introduction of Anti-inflammatory into Peripheral Nerves and Plexi, Percutaneous Approach (ICD-10-PCS; 2017-06-23)
PROC: BR161ZZ Fluoroscopy of Lumbar Facet Joint(s) using Low Osmolar Contrast (ICD-10-PCS; 2017-06-23)
DX: M51.36 Other intervertebral disc degeneration, lumbar region (principal); M96.1 Postlaminectomy syndrome, not elsewhere classified; M54.06 Panniculitis affecting regions of neck and back, lumbar region; M46.1 Sacroiliitis, not elsewhere classified
CPT/HCPCS: G0260; J1040